=== PATIENT | female | born 2000 | race Caucasian/White ===

== ENCOUNTER 2024-07-14 13:40 | Inpatient (IN) | payer BC ==
[2024-07-14] MEDS: Lactated Ringers 1,000 ML IV ONE ×2 (14:12→15:29)
[2024-07-14 14:21] LABS: BASOPHILS PERCENT AUTO 0.2 % (0.0-1.0); EOSINOPHILS PERCENT AUTO 0.2 % (0.0-6.0); HEMATOCRIT 35.9 % (37.0-47.0); HEMOGLOBIN 12.3 gm/dl (12.0-16.0); IMMATURE GRAN ABSOLUTE AUTO 0.14 K/mm3 (0.00-0.05); IMMATURE GRAN PERCENT AUTO 0.7 % (0.0-0.4); LYMPHOCYTES PERCENT AUTO 9.7 % (24.0-44.0); MEAN CORPUSCULAR HEMOGLOBIN 30.1 pg (28.0-32.0); MEAN CORPUSCULAR HGB CONC 34.3 g/dl (32.0-36.0); MEAN PLATELET VOLUME 9.9 fl (9.4-12.3); MONOCYTES ABSOLUTE AUTO 1.3 K/mm3 (0.0-0.8); MONOCYTES PERCENT AUTO 6.4 % (0.0-8.0); NEUTROPHILS ABSOLUTE AUTO 16.8 K/mm3 (1.8-7.7); NEUTROPHILS PERCENT AUTO 82.8 % (41.0-71.0); PLATELET COUNT,PLT 407 K/mm3 (150-400); RED BLOOD CELL COUNT 4.08 M/mm3 (4.10-5.30); WHITE BLOOD CELL COUNT,WBC 20.26 K/mm3 (3.9-11.3)
[2024-07-14 14:40] LABS: A/G RATIO 0.7 (1-2); ALBUMIN 2.8 g/dl (3.4-5.0); ANION GAP 19.8 (5-15); BILIRUBIN TOTAL 0.5 mg/dL (0.2-1.0); CALCIUM 8.3 mg/dL (8.5-10.1); EST CRCL DRUG DOSING (CG) 81.91 mL/min; MAGNESIUM 1.5 mg/dL (1.8-2.4); POTASSIUM,K 4.8 mEq/L (3.5-5.1); PROTEIN TOTAL,TP 6.8 g/dl (6.4-8.2)
[2024-07-14 15:29] LABS: BASE EXCESS VENOUS -8.5 (-4.0-2.0); BICARBONATE,VENOUS 17.3 meq/L (22-26); O2 SATURATION VENOUS 47.9; PH,VENOUS 7.29 (7.30-7.40)
[2024-07-14] MEDS: Magnesium Sulf/Wat 2 GM/50 mL 2 GM/50 ML BAG IV ONE (15:31)
[2024-07-14 15:42] LABS: LACTIC ACID 1.9 mmol/L (0.4-2.0)
[2024-07-14] MEDS: Clindamycin Phosphate in D5W 300 MG in Premix Bag 1 BAG IV ONE (16:37)
[2024-07-14] MEDS: Iopamidol 755 Mg/ML 100 ML Bottle IVPUSH ONE (19:14)
[2024-07-14] MEDS: Sodium Chloride 0.9% 10 ML Syringe FLUSH ONE (19:14)
[2024-07-14] MEDS ORDERED: Ketorolac 30 MG/ML SDV IV PRN (22:40)
[2024-07-14] MEDS ORDERED: Acetaminophen 325 MG Tab PO PRN (22:40)
[2024-07-14] MEDS: Sodium Chloride 0.9% 1,000 ML IV SCH (23:11)
[2024-07-14 23:28] LABS: APPEARANCE,URINE CLEAR (Clear); BILIRUBIN,URINE 1+ (Negative); COLOR,URINE YELLOW (Yellow); GLUCOSE,URINE NEGATIVE (Negative); KETONES,URINE 4+ (Negative); LEUKOCYTE ESTERASE,URINE NEGATIVE (Negative); NITRITE,URINE NEGATIVE (Negative); OCCULT BLOOD,URINE NEGATIVE (Negative); PH,URINE 6.5 (5.0-8.0); PROTEIN,URINE 2+ (Negative); UROBILINOGEN,URINE 0.2 (0.2-1.0)
[2024-07-15 00:22] LABS: BACTERIA,URINE FEW /hpf (FEW); HYALINE CASTS,URINE 0-5 /lpf (0-5); MUCUS,URINE FEW /hpf (FEW); RBC,URINE 0-5 /hpf (0-5)
[2024-07-15 05:58] LABS: ANION GAP 13.9 (5-15); BUN/CREATININE RATIO 23.3 (14-18); C-REACTIVE PROTEIN 7.08 mg/dL (<0.30); CREATININE 0.6 mg/dL (0.55-1.02); EST CRCL DRUG DOSING (CG) 136.51 mL/min; MAGNESIUM 1.9 mg/dL (1.8-2.4); PHOSPHORUS 1.8 mg/dL (2.6-4.7); POTASSIUM,K 3.9 mEq/L (3.5-5.1)
[2024-07-15 06:08] LABS: BASOPHILS PERCENT AUTO 0.3 % (0.0-1.0); EOSINOPHILS ABSOLUTE AUTO 0.1 K/mm3 (0.0-0.4); EOSINOPHILS PERCENT AUTO 0.9 % (0.0-6.0); HEMATOCRIT 25.5 % (37.0-47.0); IMMATURE GRAN ABSOLUTE AUTO 0.11 K/mm3 (0.00-0.05); IMMATURE GRAN PERCENT AUTO 0.9 % (0.0-0.4); LYMPHOCYTES ABSOLUTE AUTO 2.8 K/mm3 (1.0-4.8); MEAN CORPUSCULAR HEMOGLOBIN 29.4 pg (28.0-32.0); MEAN CORPUSCULAR HGB CONC 34.9 g/dl (32.0-36.0); MEAN CORPUSCULAR VOLUME 84.2 fl (83.0-99.0); MEAN PLATELET VOLUME 10.2 fl (9.4-12.3); MONOCYTES ABSOLUTE AUTO 1.1 K/mm3 (0.0-0.8); NEUTROPHILS ABSOLUTE AUTO 7.9 K/mm3 (1.8-7.7); NEUTROPHILS PERCENT AUTO 65.9 % (41.0-71.0); RED BLOOD CELL COUNT 3.03 M/mm3 (4.10-5.30); WHITE BLOOD CELL COUNT,WBC 12.01 K/mm3 (3.9-11.3)
[2024-07-15 06:12] LABS: HEMOGLOBIN 8.9 gm/dl (12.0-16.0); PLATELET COUNT,PLT 282 K/mm3 (150-400)
[2024-07-15] MEDS: Phosphorus #1 250 MG Tab PO ONE (09:59)
[2024-07-15] MEDS ORDERED: Phosphorus #1 250 MG Tab PO SCH (13:00)
== END 2024-07-15 11:00 | disposition home or self-care (01) | DRG 422 ==
LOC: JD.ED 13:40 → JD.MS 22:40
PROVIDERS: ADMIT Family Medicine; ATTEND Family Medicine
DX: E86.0 Dehydration (principal); E87.20 Acidosis, unspecified; J95.831 Postprocedural hemorrhage of a respiratory system organ or structure following other procedure; T73.0XXA Starvation, initial encounter; D64.9 Anemia, unspecified; F15.90 Other stimulant use, unspecified, uncomplicated; E83.42 Hypomagnesemia; R07.0 Pain in throat; R04.1 Hemorrhage from throat; Z90.49 Acquired absence of other specified parts of digestive tract; Z88.1 Allergy status to other antibiotic agents; Z79.899 Other long term (current) drug therapy; Z90.89 Acquired absence of other organs
CPT/HCPCS: 36415; 70491; 70491-26; 80048; 80053; 80143; 81001; 82010; 82803; 82947; 83605; 83735; 84100; 84703; 85025; 86140; 96361; 96365; 96366; 96368; 99285; 99285-25; A9270-GY; J0736; J3475; J7030; J7120; Q9967